=== PATIENT | male | born 1970 | race Caucasian/White ===

== ENCOUNTER 2019-07-16 12:47 | Emergency (ER) | payer SELFPAY | END 2019-07-16 14:44 | disposition left against medical advice (07) | LOC: ERS 12:47 | DX: I63.9 Cerebral infarction, unspecified (principal); R27.0 Ataxia, unspecified; R29.810 Facial weakness; G83.14 Monoplegia of lower limb affecting left nondominant side; I10 Essential (primary) hypertension; F17.210 Nicotine dependence, cigarettes, uncomplicated; Z79.899 Other long term (current) drug therapy | CPT/HCPCS: 99284 ==

== ENCOUNTER 2019-07-16 18:42 | Inpatient (IN) | payer SELFPAY ==
[2019-07-16 19:33] LABS: #Eosinphils 0.1 thou/uL (0.0-0.7); #Lymphocytes 1.7 thou/uL (1.20-3.40); #Monocytes 0.7 thou/uL (0.11-0.59); #Neutrophils 3.4 thou/uL (1.40-6.50); %Basophils 0.6 % (0.0-1.0); %Lymphocytes 29.3 % (21.0-51.0); %Monocytes 11.3 % (0.0-10.0); %Neutrophils 56.8 % (42.0-75.0); Hemoglobin 14.4 g/dL (14.0-18.0); Mean Corpuscular HGB CONC 34.8 g/dL (32.0-36.0); Mean Corpuscular Hemoglobin 36.7 pg (27.0-31.0); Mean Platelet Volume 7.1 fL (7.4-10.4); Platelet Count 95 thou/uL (130-400); RBC Distribution Width 12.4 % (11.5-14.5); Red Blood Cell (RBC) Count 3.93 mill/uL (4.70-6.10); White Blood Cell (WBC) Count 5.9 thou/uL (4.8-10.8)
[2019-07-16 19:45] LABS: ALT (SGPT) 41 U/L (8-55); AST (SGOT) 44 U/L (5-34); Alkaline Phosphatase 56 U/L (40-110); Anion Gap 17 mmol/L (10-20); BUN (Urea Nitrogen) Less than 4 mg/dL (8.9-20.6); Bilirubin, Total 0.6 mg/dL (0.2-1.2); Calc. Creatinine Clearance 0 mL/min (70-130); Calcium 8.9 mg/dL (7.8-10.44); Carbon Dioxide 21 mmol/L (22-29); Chloride 92 mmol/L (98-107); Estimated GFR-MDRD Greater than 90; Globulin 2.6 g/dL (2.4-3.5); Glucose 94 mg/dL (70-105); Potassium 3.7 mmol/L (3.5-5.1); Protein, Total 6.6 g/dL (6.0-8.3); Sodium 126 mmol/L (136-145)
[2019-07-16 19:52] LABS: MDiff Complete? YES; Macrocytosis SLIGHT = 6-15 cells (100X) (0-5/hpf); Platelet Morphology Comment Appears Decreased; Polychromasia SLIGHT = 2-3 cells (100X) (0-2/hpf)
--- NOTE | 2019-07-16 20:50 | CT ---
CT OF THE BRAIN WITHOUT IV CONTRAST: 07/16/19 INDICATION: History of left sided weakness and left sided deficits; evaluated with a stroke workup early this mor patricio at 11 a.m. but left AMA. COMPARISON: Prior CT of the brain dated 07/16/19 and 02/01/18. FINDINGS: There is generalized cerebral and cerebellar atrophy. There is mild chronic small vessel white matter ischemic change. No acute infarct, hemorrhage or hydrocephalus is present. There is partial fusion i nvolving the right mastoid air cells. The skull is intact. IMPRESSION: 1. No acute intracranial abnormality. 2. Stable generalized cerebral and cerebellar atrophy. POS: BH
[2019-07-16] MEDS ORDERED: Aspirin 325 mg Enteric Coated Tablet PO SCH (21:45)
--- NOTE | 2019-07-16 21:52 | PDOC.FPRHP ---
- History of Present Illness Chief Complaint: Weakness History of Present Illness: This is a 49 yo male with a pmh of HTN, tobacco, and alcohol abuse who presents to the ED with a cc of left sided weakness. He states this started yesterday evening at 1999 when he woke up from a nap. He states he stood up to use the restroom and fell. He states he was weak on his left side and had trouble getting back up. He thought maybe this would pass so we went to bed that evening. Earlier today, he was seen in an outside ER and was worked up for a stroke with a negative CT brain and CTA head and neck. He decided to leave AMA for a beer and cigarette. He states that the symptoms did not improve so he called the ambulance and came back to the ER. He states currently his weakness is better. He felt like his arm and hand were fatigued. ED Course: N/A - Allergies/Adverse Reactions Allergies Allergy/AdvReac Type Severity Reaction Status Date / Time No Known Allergies Allergy Verified 07/16/19 23:19 - Home Medications Medication Instructions Recorded Confirmed Type Metoprolol Tartrate [Lopressor] 100 mg PO BID 07/16/19 History - History PMHx: Tobacco and alcohol abuse, HTN PSHx: None FHx: Noncontributory Social: Smokes 2 packs a day x30 years, 18 beers per day - Review of Systems General: denies: fever/chills, weight/appetite/sleep changes, night sweats, fatigue Eyes: denies: eye pain, vision changes ENT: denies: nasal congestion, rhinorrhea Respiratory: denies: cough, congestion, shortness of breath, exercise intolerance Cardiovascular: denies: chest pain, palpitation, edema, paroxysmal nocturnal dyspnea, orthopnea Gastrointestinal: denies: nausea, vomiting, diarrhea, constipation, abdominal pain, GI bleeding Genitourinary: denies: incontinence, dysuria, polyuria Skin: denies: rashes, lesions, jaundice Musculoskeletal: denies: pain, tenderness, stiffness, swelling Neurological: reports: weakness. denies: numbness, syncope, seizure Psychological: reports: depression (Started drinking after his first divorce). denies: anxiety - Vital signs BP: 162/109 HR: 88 RR: 16 Tmax: 98.3 Pox: 98% on ra Wt: 63 kg - Physical Exam Constitutional: NAD, awake, alert and oriented, well developed HEENT: normocephalic and atraumatic, PERRLA, EOMI, grossly normal vision, grossly normal hearing, MMM Neck: trachea midline, no JVD Chest: no-tender to palpation, no lesions Heart: RRR, normal S1/S2, no murmurs/rubs/gallops, pulses present, no edema Lungs: CTAB, no respiratory distress, good air movement, no rales/rhonchi, no wheezing, no retractions Abdomen: soft, non-tender, bowel sounds present, no masses/distention Musculoskeletal: normal structure, normal tone Neurological: CN II-XII intact, normal sensation, other (Decreased strength in left upper and lower extremities, decreased proprioception on left) Skin: good turgor, capillary refill <2 seconds Heme/Lymphatic: no unusual bruising or bleeding Psychiatric: normal mood and affect, good judgment and insight FMR H&P: Results - Labs Result Diagrams: 07/17/19 04:45 07/17/19 04:45 Lab results: WBC 5.9 thou/uL (4.8-10.8) 07/16/19 19:18 Hgb 14.4 g/dL (14.0-18.0) 07/16/19 19:18 Hct 41.4 % (42.0-52.0) L 07/16/19 19:18 MCV 105.0 fL (78.0-98.0) H 07/16/19 19:18 Plt Count 95 thou/uL (130-400) L 07/16/19 19:18 Neutrophils % 56.8 % (42.0-75.0) 07/16/19 19:18 Sodium 126 mmol/L (136-145) L 07/16/19 19:18 Potassium 3.7 mmol/L (3.5-5.1) 07/16/19 19:18 Chloride 92 mmol/L (98-107) L 07/16/19 19:18 Carbon Dioxide 21 mmol/L (22-29) L 07/16/19 19:18 BUN Less than 4 mg/dL (8.9-20.6) L 07/16/19 19:18 Creatinine 0.67 mg/dL (0.7-1.3) L 07/16/19 19:18 Glucose 94 mg/dL (70-105) 07/16/19 19:18 Calcium 8.9 mg/dL (7.8-10.44) 07/16/19 19:18 Total Bilirubin 0.6 mg/dL (0.2-1.2) 07/16/19 19:18 AST 44 U/L (5-34) H 07/16/19 19:18 ALT 41 U/L (8-55) 07/16/19 19:18 Alkaline Phosphatase 56 U/L (40-110) 07/16/19 19:18 Serum Total Protein 6.6 g/dL (6.0-8.3) 07/16/19 19:18 Albumin 4.0 g/dL (3.5-5.0) 07/16/19 19:18 - EKG Interpretation EKG: NSR HR 84, QRS 74, QTc 441 - Radiology Interpretation CT scan - head Status: report reviewed by me (CTA head and neck no acute aneurism or bleed. Stenosis of left internal carotid CT brain: No acute intracranial lesions) FMR H&P: A/P - Problem List (1) CVA (cerebral vascular accident) Current Visit: Yes Status: Acute Code(s): I63.9 - CEREBRAL INFARCTION, UNSPECIFIED (2) Alcohol abuse Current Visit: Yes Status: Acute Code(s): F10.10 - ALCOHOL ABUSE, UNCOMPLICATED (3) Tobacco abuse Current Visit: Yes Status: Acute Code(s): Z72.0 - TOBACCO USE (4) Hyponatremia Current Visit: Yes Status: Acute Code(s): E87.1 - HYPO-OSMOLALITY AND HYPONATREMIA - Plan CVA/TIA rule out -Admit to stroke obs -Tele monitoring -CT brain/CTA head and neck grossly normal -EKG NSR -Pending echo and MRI -Starting statin and aspirin therapy -Permissive HTN Alcoholism -ASE protocol -Thiamine and folate supplementation -RUQ US Hyponatremia -Likely 2/2 above -Will replete solute Tobacco abuse -Nicotine patch -Encouraged cessation Code: Full Prophylaxis: Lovenox Family: None at bedside Fluids: SL Diet: HH Disposition: DC in 1-2 days PCP: None, cc FMR H&P: Upper Level - Plan Date/Time: 07/16/192135 I, [], have evaluated this patient and agree with findings/plan as outlined by undergraduate internship resident. Pertinent changes/additions are listed here. Addendum - Attending - Attending Attestation Date/Time: 07/17/19 2852 I personally evaluated the patient and discussed the management with Dr. Rand. I agree with the History, Examination, Assessment and Plan documented above with any addition or exceptions noted below. Patient with definite hemiparesis with some cerebellar findings on left. A/P: Likely stroke -MRI -TTE -risk stratify ETOH dependence -ASE protocol -thaimime/FA/MVI Thrombocytopenia/elevated LFTs -suspect cirrhosis -RUQ sono PT/OT DVT ppx
[2019-07-16] MEDS ORDERED: Acetaminophen 650 MG Suppository PR PRN (23:16)
[2019-07-16] MEDS ORDERED: Ondansetron ODT 4 MG TAB PO PRN (23:16)
[2019-07-16] MEDS ORDERED: Labetalol HCl 100 MG/20 ML VIAL SLOW IVP PRN (23:16)
[2019-07-16] MEDS ORDERED: hydrALAZINE 20 MG/ML VIAL SLOW IVP PRN (23:16)
[2019-07-16] MEDS ORDERED: Ondansetron PF 4 MG/2 ML Vial IVP PRN (23:16)
[2019-07-16] MEDS ORDERED: Acetaminophen 325 MG TAB PO PRN (23:16)
[2019-07-16] MEDS ORDERED: Diazepam 5 MG TAB PO PRN (23:19)
[2019-07-16] MEDS: Nicotine 21 MG PATCH TD SCH (23:43)
[2019-07-16] MEDS ORDERED: Diazepam 5 MG TAB PO SCH (23:59)
[2019-07-16] MEDS ORDERED: Thiamine HCl 200 MG/2 ML VIAL IM SCH (23:59)
[2019-07-17 01:18] VITALS: BMI 18.9
[2019-07-17] MEDS ORDERED: Thiamine 100 MG TAB PO SCH (03:15)
[2019-07-17] MEDS ORDERED: Folic Acid 1 MG TAB PO SCH (03:15)
[2019-07-17] MEDS ORDERED: Diazepam 5 MG TAB PO PRN (04:00)
[2019-07-17 05:25] LABS: ALT (SGPT) 38 U/L (8-55); AST (SGOT) 45 U/L (5-34); Albumin 3.7 g/dL (3.5-5.0); Alkaline Phosphatase 54 U/L (40-110); Anion Gap 16 mmol/L (10-20); BUN (Urea Nitrogen) 4 mg/dL (8.9-20.6); Bilirubin, Total 0.7 mg/dL (0.2-1.2); Calc. Creatinine Clearance 112 mL/min (70-130); Calcium 8.8 mg/dL (7.8-10.44); Carbon Dioxide 21 mmol/L (22-29); Cardiac Risk 2.8 (Less than 4.5); Chloride 98 mmol/L (98-107); Cholesterol 130 mg/dl (< 200 Desired); Estimated GFR-MDRD Greater than 90; Globulin 2.7 g/dL (2.4-3.5); Glucose 79 mg/dL (70-105); HDL Cholesterol 46 mg/dL (>60 Neg Risk); LDL Cholesterol, Calculated 71 mg/dL; Protein, Total 6.4 g/dL (6.0-8.3); Sodium 131 mmol/L (136-145); Triglycerides 64 mg/dL (Less than 150)
[2019-07-17 05:39] LABS: #Basophils 0.1 thou/uL (0.0-0.2); #Eosinphils 0.2 thou/uL (0.0-0.7); #Lymphocytes 1.9 thou/uL (1.20-3.40); #Monocytes 0.7 thou/uL (0.11-0.59); #Neutrophils 2.6 thou/uL (1.40-6.50); %Basophils 1.5 % (0.0-1.0); %Lymphocytes 34.7 % (21.0-51.0); %Monocytes 13.1 % (0.0-10.0); %Neutrophils 46.7 % (42.0-75.0); Hemoglobin 14.7 g/dL (14.0-18.0); Mean Corpuscular HGB CONC 34.2 g/dL (32.0-36.0); Mean Corpuscular Hemoglobin 36.6 pg (27.0-31.0); Mean Platelet Volume 7.2 fL (7.4-10.4); Platelet Count 113 thou/uL (130-400); RBC Distribution Width 12.4 % (11.5-14.5); Red Blood Cell (RBC) Count 4.01 mill/uL (4.70-6.10); White Blood Cell (WBC) Count 5.5 thou/uL (4.8-10.8)
--- NOTE | 2019-07-17 06:09 | PDOC.FM ---
- Subjective Subjective: Pt complains of continued mild weakness and discoordination of his RUE and RLE. No problems speaking and feels his speech is normal. Discussed different studies we will be getting today and pt is agreeable with plan. Expresses that he just wants to get better and leave. - Objective Vital Signs & Weight: Vital Signs (12 hours) Temp Pulse Resp BP BP Pulse Ox 07/17/19 04:22 97.5 F L 86 20 174/107 H 99 07/17/19 00:03 97.6 F 81 20 160/93 H 98 07/16/19 22:15 140/84 07/16/19 22:14 98 F 88 20 172/93 H 100 Weight Weight 58.241 kg I&O: 07/15/19 07/16/19 07/17/19 06:59 06:59 06:59 Intake Total 200 Output Total 100 Balance 100 Result Diagrams: 07/17/19 04:45 07/17/19 04:45 Phys Exam - Physical Examination Constitutional: NAD Thin HEENT: sclera anicteric Respiratory: clear to auscultation bilateral Cardiovascular: RRR Gastrointestinal: soft Scaphoid abdomen Musculoskeletal: no edema, pulses present Neurological: moves all 4 limbs Left hand telemarketing agent weak, finger to nose test with left arm is discoordinated Psychiatric: normal affect, A&O x 3 Skin: no rash, cap refill <2 seconds Dx/Plan (1) Alcohol abuse Code(s): F10.10 - ALCOHOL ABUSE, UNCOMPLICATED Status: Acute (2) CVA (cerebral vascular accident) Code(s): I63.9 - CEREBRAL INFARCTION, UNSPECIFIED Status: Acute (3) Hyponatremia Code(s): E87.1 - HYPO-OSMOLALITY AND HYPONATREMIA Status: Acute (4) Tobacco abuse Code(s): Z72.0 - TOBACCO USE Status: Acute (5) Macrocytosis Code(s): D75.89 - OTHER SPECIFIED DISEASES OF BLOOD AND BLOOD-FORMING ORGANS Status: Acute (6) Thrombocytopenia Code(s): D69.6 - THROMBOCYTOPENIA, UNSPECIFIED Status: Acute - Plan Plan: CVA/TIA rule out -Admit to stroke obs -Tele monitoring -CT brain/CTA head and neck grossly normal -Pending echo and MRI -Starting statin and aspirin therapy Alcoholism -macrocytosis without anemia and thrombocytopenia -ASE protocol -Thiamine and folate supplementation Hyponatremia -Likely 2/2 above -Improving with PO Tobacco abuse -Nicotine patch -Encouraged cessation Hypertension -24 hrs permissive htn allowed -Start 3.125 Coreg this morning Code: Full Prophylaxis: Lovenox Family: None at bedside Fluids: SL Diet: HH Disposition: DC in 1-2 days PCP: None, cc Addendum - Attending - Attending Attestation Date/Time: 07/17/19 5345 I personally evaluated the patient and discussed the management with Dr. Radford. I agree with the History, Examination, Assessment and Plan documented above with any addition or exceptions noted below. Patient has MRI evidence of CVA. Will continue usual post stroke care. Neuro consult and therapy evals.
[2019-07-17] MEDS ORDERED: Carvedilol 3.125 MG TAB PO SCH (08:00)
--- NOTE | 2019-07-17 09:00 | MRI ---
MRI OF THE BRAIN WITHOUT CONTRAST: COMPARISON: CT brain 07/16/2019. HISTORY: New onset of left arm and leg weakness. TECHNIQUE: Multiplanar, multisequence MRI images were obtained of the brain without and with IV contrast. FINDINGS: There is a small area of restricted diffusion in the right basal ganglia extending into the periventr icular white matter measuring 1.8 cm in greatest dimension. This represents a small new acute infarc tion. Mild high FLAIR signal is also seen in this location. There is no evidence of intracranial he morrhage or extraaxial fluid collection. No hydrocephalus is seen. The expected flow voids are present. The corpus callosum, pituitary, and craniocervical junction are unremarkable. The calvarium and overlying soft tissues are unremarkable. A small amount of fluid is seen in the bi lateral mastoid air cells. IMPRESSION: Small acute infarction in the right basal ganglia as above. POS: EAA
--- NOTE | 2019-07-17 09:29 | ULT ---
GALLBLADDER ULTRASOUND: INDICATION: Right upper quadrant pain. Possible cirrhosis. The patient states the patient is nonfasting. The p atient ate breakfast according to the technologist. FINDINGS: The gallbladder is not well distended and the gallbladder wall is mildly thickened. However, this is probably due to the nonfasting state. No evidence of gallstones. The common duct is normal in maryam ric measured at 3 mm. The liver is homogeneous and unremarkable in appearance. No liver mass. The pancreas is partially imaged and appears unremarkable as visualized. The right kidney is imaged and appears unremarkable. There is an echogenic focus seen in the mid rig ht kidney which could potentially represent a renal calculus which measures in the 5 mm range. IMPRESSION: 1. Unremarkable ultrasound liver. 2. Gallbladder is contracted with thickened wall. The patient is nonfasting and the gallbladder is not adequately evaluated. 3. Possible right renal calculus. POS: AGW
[2019-07-17] MEDS: Magnesium Oxide 400 MG TAB PO SCH (09:45)
[2019-07-17] MEDS: Multivitamin W/ Minerals 1 TAB PO SCH (09:45)
[2019-07-17] MEDS: Folic Acid 1 MG TAB PO SCH (09:46)
[2019-07-17] MEDS: Aspirin 81 mg Enteric Coated Tablet PO SCH (09:46)
[2019-07-17] MEDS: Thiamine 100 MG TAB PO SCH (09:46)
[2019-07-17 12:58] LABS: Medtox Reader # READER 1
[2019-07-17 12:59] LABS: Amphetamine Not Detected (NotDetected); Barbiturates Screen Not Detected (NotDetected); Benzodiazepine Screen Detected (NotDetected); Cocaine Metabolite Screen Not Detected (NotDetected); Medtox Control Line Valid? VALID (VALID); Methadone Not Detected (NotDetected); Methamphetamine Not Detected (NotDetected); Opiate Screen Not Detected (NotDetected); Oxycodone Screen Not Detected (NotDetected); Phencyclidine (PCP) Not Detected (NotDetected); THC/Cannabinoid Screen Not Detected (NotDetected); Tricyclic Screen Not Detected (NotDetected)
[2019-07-17] MEDS ORDERED: BEER 1 CAN PO SCH (13:45)
--- NOTE | 2019-07-17 13:56 | CON ---
DATE OF CONSULTATION: 07/17/2019 REASON FOR CONSULTATION: Left-sided weakness. HISTORY OF PRESENT ILLNESS: Mr. Daigle is a 49-year-old male with a history significant for hypertension, tobacco abuse, and alcohol abuse, presented to the emergency room with complaint of left-sided weakness. The weakness started yesterday around 2:20, when he woke up after taking a short nap. He tried to stand up to go to the restroom, but unable to do so and fell on the floor. He felt weak on the left side and had trouble getting back up. Yesterday, during the morning , he was also seen at the [facility] ER, where he was worked up with a stroke and a head CT was negative, and CTA of the head and neck was negative. He left AMA at that time for a beer and cigarette. Apparently, he felt weak earlier yesterday morning too, but his weakness resolved, so he decided to leave. The patient denies any nausea, vomiting, headache, vertigo, dizziness, loss of vision, loss of consciousness, or abnormal involuntary movement associated with this episode. He denies any history of stroke. - Allergies/Adverse Reactions Allergies Allergy/AdvReac Type Severity Reaction Status Date / Time No Known Allergies Allergy Verified 07/16/19 23:19 - Home Medications Medication Instructions Recorded Confirmed Type Metoprolol Tartrate [Lopressor] 100 mg PO BID 07/16/19 History - History PMHx: Tobacco and alcohol abuse, HTN PSHx: None FHx: Noncontributory Social: Smokes 2 packs a day x30 years, 18 beers per day - Review of Systems General: denies: fever/chills, weight/appetite/sleep changes, night sweats, fatigue Eyes: denies: eye pain, vision changes ENT: denies: nasal congestion, rhinorrhea Respiratory: denies: cough, congestion, shortness of breath, exercise intolerance Cardiovascular: denies: chest pain, palpitation, edema, paroxysmal nocturnal dyspnea, orthopnea Gastrointestinal: denies: nausea, vomiting, diarrhea, constipation, abdominal pain, GI bleeding Genitourinary: denies: incontinence, dysuria, polyuria Skin: denies: rashes, lesions, jaundice Musculoskeletal: denies: pain, tenderness, stiffness, swelling Neurological: reports: weakness. denies: numbness, syncope, seizure Psychological: reports: depression (Started drinking after his first divorce). denies: anxiety - Vital signs BP: 162/109 HR: 88 RR: 16 Tmax: 98.3 Pox: 98% on ra Wt: 63 kg Objective Vital Signs & Weight: Vital Signs (12 hours) Temp Pulse Resp BP BP Pulse Ox 07/17/19 04:22 97.5 F L 86 20 174/107 H 99 07/17/19 00:03 97.6 F 81 20 160/93 H 98 07/16/19 22:15 140/84 07/16/19 22:14 98 F 88 20 172/93 H 100 Weight Weight 58.241 kg I&O: 07/15/19 07/16/19 07/17/19 06:59 06:59 06:59 Intake Total 200 Output Total 100 Balance 100 - Physical Exam Constitutional: NAD, awake, alert and oriented, well developed HEENT: normocephalic and atraumatic, PERRLA, EOMI, grossly normal vision, grossly normal hearing, MMM Neck: trachea midline, no JVD Chest: no-tender to palpation, no lesions Heart: RRR, normal S1/S2, no murmurs/rubs/gallops, pulses present, no edema Lungs: CTAB, no respiratory distress, good air movement, no rales/rhonchi, no wheezing, no retractions Abdomen: soft, non-tender, bowel sounds present, no masses/distention Musculoskeletal: normal structure, normal tone Heme/Lymphatic: no unusual bruising or bleeding Psychiatric: normal mood and affect, good judgment and insight NEUROLOGICAL: Mental status, this patient is alert and oriented to person, place, and time. Speech is slurred. Cranial nerves, pupils equal and reactive to light. Left facial droop. Shrugs shoulders bilaterally. No gaze preference. Extraocular movements intact. Dysarthria. Tongue midline. Motor, muscle tone and bulk are normal. Strength 3/5 in the left upper and lower extremities, 5/5 in the right upper and lower extremities. Reflexes 2+ bilaterally. Cerebellar slow on the left secondary to weakness. Gait not tested because of the patient's safety reason. LABORATORY DATA: Labs were essentially unremarkable, except hyponatremia, sodium of 131, BUN was 4. I reviewed the head CT which was negative for acute intracranial pathology. CT of the head and neck, prior report from the emergency room did not reveal any significant stenosis of the left carotid artery. ASSESSMENT AND PLAN: Mr. Daigle is a 49-year-old with history significant for hyponatremia, tobacco and alcohol abuse, hypertension, presented with the left- sided weakness. MRI of the brain reviewed, which was consistent with small acute right basal ganglia infarct, most likely secondary to hypertension. Recommend echocardiogram to rule out cardioembolic source. Neuro checks every 4 hours. Continue aspirin and statin for secondary stroke prevention, permissive control of blood pressure at this time. Telemetry to rule out arrhythmias. Continue home medications. PT/OT/Speech. DVT Prophylaxis. Continue medical management per primary team. We will continue to follow. Thank you for the consult. Job ID: [id number] [facility]ENTERSh[facility]
[2019-07-17] MEDS ORDERED: Lisinopril 10 MG TAB PO SCH (14:15)
[2019-07-17] MEDS: Carvedilol 6.25 MG TAB PO SCH (17:12)
[2019-07-17] MEDS: BEER 1 CAN PO SCH (18:40)
--- NOTE | 2019-07-17 20:19 | CON ---
DATE OF CONSULTATION: 07/17/2019 REASON FOR CONSULTATION: Evaluate the patient with critical left carotid stenosis. HISTORY OF PRESENT ILLNESS: Mr. Daigle is a 49-year-old gentleman, who has been in and out of the ER over the last couple of days with left-sided weakness. He has left AMA, but eventually came via ambulance to [place]. He has no previous cardiac history. He has no previous surgical vascular history. He presented with left arm and leg weakness. He cannot walk. He barely could use his hand at the time of presentation to the ER. He has recovered down to where he stood today, but not walked. 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 As part of his workup, he has had a CT angiogram performed of his neck. This shows a clean right carotid system. On the left, he has heavily calcified carotid bulb and proximal internal carotid artery with critical stenosis. The patient drinks about a case of beer a day. He smokes at least a pack of cigarettes a day. I have been asked to see him to make recommendations on his left carotid system. PAST MEDICAL HISTORY: Hypertension. PAST SURGICAL HISTORY: None. MEDICATIONS AT HOME: Lopressor 100 mg b.i.d. ALLERGIES: NONE. SOCIAL HISTORY: As above. PHYSICAL EXAMINATION: GENERAL: This is a thin gentleman, resting comfortably in the bed on the stroke unit. VITAL SIGNS: Temperature is 98.4, pulse is 100, and blood pressure is 142/103. HEENT: Sclerae nonicteric. Pupils equal and round bilaterally. NECK: Supple. I cannot auscultate a bruit on either side. CHEST: Clear bilaterally. HEART: Rhythm is regular without murmur. ABDOMEN: Soft and nontender without mass. EXTREMITIES: No edema. VASCULAR: Palpable carotid, radial, and femoral pulses bilaterally. DIAGNOSTIC DATA: I have reviewed his CT scan. ASSESSMENT AND PLAN: This is a 49-year-old gentleman, who has suffered a stroke in his right hemisphere. He has no causative lesion in his right carotid system. He has an asymptomatic left critical carotid stenosis. Due to his history, I am reluctant to allow him to go home and come back to treat this lesion, despite the fact that it is asymptomatic. His anatomy is critical and I have discussed treatment of his left carotid lesion while he is an inpatient and he has agreed with plan for carotid endarterectomy tomorrow. We will also plan for long-term aspirin and Plavix after this. The patient has a longstanding heavy alcohol use history and is starting to experience withdrawal symptoms. We will start him on beer. We will also begin an PATITO inhibitor in addition to his Lopressor. Job ID: [id number]
[2019-07-17] MEDS: Atorvastatin Calcium 40 MG TAB PO SCH (21:42)
[2019-07-17] MEDS: Nicotine 21 MG PATCH TD SCH (23:56)
[2019-07-18] MEDS: Carvedilol 6.25 MG TAB PO SCH ×2 (05:00→16:57)
--- NOTE | 2019-07-18 06:08 | PDOC.FM ---
- Subjective Subjective: Denies any worsening or improvement in his left sided weakness and incoordination. Talked w/ Dr. Ortiz yesterday and agreed to proceed with CEA today. Discussed current plan of care and pt agrees to proceed. - Objective Vital Signs & Weight: Vital Signs (12 hours) Temp Pulse Resp BP BP Pulse Ox 07/18/19 05:00 182/83 H 07/18/19 04:00 97.9 F 83 18 182/83 H 95 07/17/19 23:58 98.6 F 94 18 137/86 98 07/17/19 21:45 96.8 F L 92 16 118/86 98 Weight Admit Weight 58.241 kg Weight 58.241 kg I&O: 07/16/19 07/17/19 07/18/19 06:59 06:59 06:59 Intake Total 200 700 Output Total 100 1650 Balance 100 -950 Result Diagrams: 07/17/19 04:45 07/17/19 04:45 Phys Exam - Physical Examination Constitutional: NAD HEENT: moist MMs, sclera anicteric Respiratory: clear to auscultation bilateral Cardiovascular: RRR Neurological: moves all 4 limbs Incoordination of left hand and lower leg, slightly weaker Lt fast food manager Psychiatric: normal affect, A&O x 3 Skin: cap refill <2 seconds Dx/Plan (1) Alcohol abuse Code(s): F10.10 - ALCOHOL ABUSE, UNCOMPLICATED Status: Acute (2) CVA (cerebral vascular accident) Code(s): I63.9 - CEREBRAL INFARCTION, UNSPECIFIED Status: Acute (3) Hyponatremia Code(s): E87.1 - HYPO-OSMOLALITY AND HYPONATREMIA Status: Acute (4) Tobacco abuse Code(s): Z72.0 - TOBACCO USE Status: Acute (5) Macrocytosis Code(s): D75.89 - OTHER SPECIFIED DISEASES OF BLOOD AND BLOOD-FORMING ORGANS Status: Acute (6) Thrombocytopenia Code(s): D69.6 - THROMBOCYTOPENIA, UNSPECIFIED Status: Acute - Plan Plan: CVA -CT brain/CTA head - proximal LICA 80% stenosis - Consulted [facility] - Dr. Ortiz saw pt and plans to perform CEA today. -MRI - right basal ganglia infarct with periventricular extension - Neurology - Dr. Rodriguez, appreciate recs -Echo -EF 60-65%, mild mitral and tricuspid regurg, 1/3 diastolic dysfunction -Started statin and aspirin therapy Alcoholism -macrocytosis without anemia and thrombocytopenia -ASE protocol -Thiamine and folate supplementation -Beer with meals Hyponatremia -Likely 2/2 above -Improving with PO Tobacco abuse -Nicotine patch -Encouraged cessation Hypertension -24 hrs permissive htn allowed -6.25 Coreg and 10 lisinopril Code: Full Prophylaxis: Lovenox Family: None at bedside Fluids: SL Diet: HH Disposition: DC in 2-3 days PCP: None, cc Addendum - Attending - Attending Attestation Date/Time: 07/18/19 1257 I personally evaluated the patient and discussed the management with Dr. Radford. I agree with the History, Examination, Assessment and Plan documented above with any addition or exceptions noted below. Patient doing well. Neuro deficits stable. Going for CEA today. Will need standard post-CVA care and therapy/ meds.
[2019-07-18] MEDS: BEER 1 CAN PO SCH ×3 (08:57→19:43)
[2019-07-18] MEDS ORDERED: Bupivacaine PF 0.5% 30 ML VIAL ONE (10:21)
[2019-07-18] MEDS ORDERED: Protamine Sulfate 50 MG/5 ML VIAL ONE (10:21)
[2019-07-18] MEDS ORDERED: EPINEPHrine 1 MG/ML AMP ONE (10:21)
[2019-07-18] MEDS ORDERED: Heparin 5,000 UNITS/ML VIAL ONE (10:21)
[2019-07-18] MEDS ORDERED: Fentanyl 100 MCG/2 ML VIAL ONE ×2 (10:42→13:52)
[2019-07-18] MEDS ORDERED: Phenylephrine 10 MG/ML VIAL ONE (10:42)
[2019-07-18] MEDS: Aspirin 81 mg Enteric Coated Tablet PO SCH (11:43)
[2019-07-18] MEDS: Lisinopril 10 MG TAB PO SCH (11:43)
[2019-07-18] MEDS: Folic Acid 1 MG TAB PO SCH (11:43)
[2019-07-18] MEDS: Thiamine 100 MG TAB PO SCH (11:44)
[2019-07-18] MEDS: Multivitamin W/ Minerals 1 TAB PO SCH (11:44)
[2019-07-18] MEDS: Magnesium Oxide 400 MG TAB PO SCH (11:44)
[2019-07-18] MEDS ORDERED: Ondansetron HCl/PF 4 MG/2 ML Vial IVP PRN (12:11)
[2019-07-18] MEDS ORDERED: Promethazine HCl 25 MG/ML VIAL IM PRN ×2 (12:11→13:10)
[2019-07-18] MEDS ORDERED: Promethazine HCl 25 MG/ML VIAL SLOW IVP PRN (12:11)
[2019-07-18] MEDS ORDERED: Rocuronium Bromide 10 MG/ML (10ML VIAL) ONE (12:37)
[2019-07-18] MEDS ORDERED: Dexamethasone 20 MG/5 ML VIAL ONE (12:37)
[2019-07-18] MEDS ORDERED: Lidocaine 1% PF 5 ML VIAL ONE (12:37)
[2019-07-18] MEDS ORDERED: Labetalol HCl 100 MG/20 ML VIAL ONE (12:37)
[2019-07-18] MEDS ORDERED: PHENYLEPHRINE-NS 100 MCG/ML 10 ML SYRINGE ONE (12:37)
[2019-07-18] MEDS ORDERED: Ondansetron PF 4 MG/2 ML Vial ONE (12:37)
[2019-07-18] MEDS ORDERED: PROPOFOL 200 MG/20 ML VIAL ONE (12:37)
[2019-07-18] MEDS ORDERED: Nitroglycerin 50 MG/250 ML BOT 250 ML IVPB PRN (13:10)
[2019-07-18] MEDS ORDERED: Fentanyl 100 MCG/2 ML VIAL SLOW IVP PRN ×2 (13:10)
[2019-07-18] MEDS ORDERED: Ondansetron PF 4 MG/2 ML Vial IVP PRN (13:10)
[2019-07-18] MEDS ORDERED: Phenylephrine 10 MG/NS 250 ML 250 ML IVPB PRN (13:10)
[2019-07-18] MEDS ORDERED: HYDROcodone/Acetaminophen 5/325 mg Tablet PO PRN (13:10)
[2019-07-18] MEDS ORDERED: Acetaminophen 325 MG TAB PO PRN (13:10)
[2019-07-18] MEDS: Sodium Chloride 0.9% 1,000 ML IV SCH (14:39)
[2019-07-18] MEDS: Nicotine 21 MG PATCH TD SCH (17:39)
[2019-07-18] MEDS: CEFAZOLIN 2 GM in Premix Bag 1 BAG IVPB SCH (18:44)
[2019-07-18] MEDS: Atorvastatin Calcium 40 MG TAB PO SCH (20:00)
[2019-07-18] MEDS: HYDROcodone/Acetaminophen 5/325 mg Tablet PO PRN (20:05)
[2019-07-18] MEDS: hydrALAZINE 20 MG/ML VIAL SLOW IVP PRN (20:11)
[2019-07-19] MEDS: Labetalol HCl 100 MG/20 ML VIAL SLOW IVP PRN ×3 (00:07→13:09)
[2019-07-19] MEDS: Sodium Chloride 0.9% 1,000 ML IV SCH ×3 (00:16→09:15)
[2019-07-19] MEDS: hydrALAZINE 20 MG/ML VIAL SLOW IVP PRN (04:08)
[2019-07-19] MEDS: CEFAZOLIN 2 GM in Premix Bag 1 BAG IVPB SCH ×2 (04:09→11:55)
--- NOTE | 2019-07-19 05:50 | PDOC.FM ---
- Subjective Subjective: CEA yesterday without complications. Notes some minimal improvement in his left hand dexterity and fine motor. Discussed plan of care and possible discharge plans going forward. Pt attempting to get some form of emergency medical insurance to assist with coverage for rehab center. - Objective Vital Signs & Weight: Vital Signs (12 hours) Temp Pulse Resp BP Pulse Ox 07/19/19 04:08 78 197/88 H 07/19/19 04:00 98.1 F 07/19/19 00:59 78 16 97 07/19/19 00:07 98 188/90 H 07/19/19 00:00 97.8 F 07/18/19 23:00 99 07/18/19 22:00 98.6 F 07/18/19 20:11 82 220/104 H 07/18/19 20:00 98.6 F 100 07/18/19 18:54 98.3 F 07/18/19 18:19 82 18 97 Weight Admit Weight 58.241 kg Weight 58.241 kg Most Recent Monitor Data Heart Rate from ECG 85 NIBP 138/88 NIBP BP-Mean 104 Respiration from ECG 18 SpO2 96 I&O: 07/17/19 07/18/19 07/19/19 06:59 06:59 06:59 Intake Total 028 895 4253 Output Total 100 1650 1575 Balance 100 -950 -340 Result Diagrams: 07/17/19 04:45 07/17/19 04:45 Phys Exam - Physical Examination Constitutional: NAD HEENT: moist MMs, sclera anicteric Left neck s/p CEA submandibular incision CDI Respiratory: clear to auscultation bilateral Cardiovascular: RRR Musculoskeletal: no edema Neurological: moves all 4 limbs dysmetria of LUE, able to do fingers to thumbs more fluently Psychiatric: normal affect, A&O x 3 Skin: cap refill <2 seconds Dx/Plan (1) Alcohol abuse Code(s): F10.10 - ALCOHOL ABUSE, UNCOMPLICATED Status: Acute (2) CVA (cerebral vascular accident) Code(s): I63.9 - CEREBRAL INFARCTION, UNSPECIFIED Status: Acute (3) Hyponatremia Code(s): E87.1 - HYPO-OSMOLALITY AND HYPONATREMIA Status: Acute (4) Tobacco abuse Code(s): Z72.0 - TOBACCO USE Status: Acute (5) Macrocytosis Code(s): D75.89 - OTHER SPECIFIED DISEASES OF BLOOD AND BLOOD-FORMING ORGANS Status: Acute (6) Thrombocytopenia Code(s): D69.6 - THROMBOCYTOPENIA, UNSPECIFIED Status: Acute - Plan Plan: CVA -CT brain/CTA head - proximal LICA 80% stenosis - CEA by Dr. Ortiz yesterday -MRI - right basal ganglia infarct with periventricular extension - Neurology - Dr. Rodriguez, appreciate recs -Residual left sided weakness and dysmetria - PT recommending Rehab post D/C - Pt uninsured, CM consulted for placement assistance -Echo -EF 60-65%, mild mitral and tricuspid regurg, 1/3 diastolic dysfunction -Started statin and aspirin therapy Alcoholism -macrocytosis without anemia and thrombocytopenia -ASE protocol -Thiamine and folate supplementation -Beer with meals Hyponatremia -Likely 2/2 above -Improving with PO Tobacco abuse -Nicotine patch -Encouraged cessation Hypertension -24 hrs permissive htn allowed -6.25 Coreg and 10 lisinopril -BMP to monitor for new ACEi -If uncontrolled, plan to increase coreg Code: Full Family: None at bedside Fluids: SL Diet: HH Disposition: DC in 2-4 days PCP: None, cc Addendum - Attending - Attending Attestation Date/Time: 07/19/19 1046 I personally evaluated the patient and discussed the management with Dr. Radford. I agree with the History, Examination, Assessment and Plan documented above with any addition or exceptions noted below. Patient doing well s/p CEA. Will continue BP mgmt and post CVA care with PT and needs CM for help with possible rehab placement.
[2019-07-19] MEDS: HYDROcodone/Acetaminophen 5/325 mg Tablet PO PRN (06:05)
[2019-07-19] MEDS: Magnesium Oxide 400 MG TAB PO SCH (09:13)
[2019-07-19] MEDS: Multivitamin W/ Minerals 1 TAB PO SCH (09:13)
[2019-07-19] MEDS: Lisinopril 10 MG TAB PO SCH (09:14)
[2019-07-19] MEDS: Aspirin Chewable 81 MG TAB PO SCH (09:14)
[2019-07-19] MEDS: Thiamine 100 MG TAB PO SCH (09:15)
[2019-07-19] MEDS: Folic Acid 1 MG TAB PO SCH (09:15)
[2019-07-19] MEDS: Carvedilol 6.25 MG TAB PO SCH (09:24)
[2019-07-19] MEDS: BEER 1 CAN PO SCH ×3 (09:36→17:30)
[2019-07-19] MEDS ORDERED: Carvedilol 6.25 MG TAB PO SCH (17:00)
[2019-07-19] MEDS: Nicotine 21 MG PATCH TD SCH (20:31)
[2019-07-19] MEDS: Atorvastatin Calcium 40 MG TAB PO SCH (20:31)
[2019-07-19] MEDS: Enoxaparin Sodium 30 MG/0.3 ML SYRINGE SC SCH (20:31)
[2019-07-20] MEDS: HYDROcodone/Acetaminophen 5/325 mg Tablet PO PRN ×3 (02:21→21:20)
[2019-07-20] MEDS: Labetalol HCl 100 MG/20 ML VIAL SLOW IVP PRN ×3 (05:08→11:11)
--- NOTE | 2019-07-20 05:54 | PDOC.FM ---
- Subjective Subjective: No events overnight. States no complaints this morning aside from post op left neck soreness. States he continues to try to work on fine motor skills of left hand on his own. Discussed importance of hypertension management once he leaves the hospital. Pt agrees with current plan of care. - Objective Vital Signs & Weight: Vital Signs (12 hours) Temp Pulse Resp BP BP BP Pulse Ox 07/20/19 05:08 81 185/100 H 07/20/19 04:49 98.4 F 81 16 185/100 H 94 L 07/20/19 02:24 98.5 F 83 16 177/102 H 99 07/19/19 20:20 96 07/19/19 20:12 97.6 F 96 16 179/105 H 96 07/19/19 20:00 97 143/93 H 07/19/19 19:02 87 16 97 Weight Admit Weight 58.241 kg Weight 58.241 kg Most Recent Monitor Data Heart Rate from ECG 101 NIBP 163/105 NIBP BP-Mean 124 Respiration from ECG 28 SpO2 95 I&O: 07/18/19 07/19/19 07/20/19 06:59 06:59 06:59 Intake Total 700 2577 1768.5 Output Total 1650 1575 2650 Balance -950 1002 -881.5 Result Diagrams: 07/20/19 06:25 07/20/19 06:25 Phys Exam - Physical Examination Constitutional: NAD HEENT: moist MMs, sclera anicteric Neck: full ROM left surgical incision CDI Respiratory: clear to auscultation bilateral Cardiovascular: RRR Musculoskeletal: no edema, pulses present Neurological: moves all 4 limbs Finger to nose and thumb to fingers unchanged since yesterday Psychiatric: normal affect, A&O x 3 Skin: no rash Dx/Plan (1) Alcohol abuse Code(s): F10.10 - ALCOHOL ABUSE, UNCOMPLICATED Status: Acute (2) CVA (cerebral vascular accident) Code(s): I63.9 - CEREBRAL INFARCTION, UNSPECIFIED Status: Acute (3) Hyponatremia Code(s): E87.1 - HYPO-OSMOLALITY AND HYPONATREMIA Status: Acute (4) Tobacco abuse Code(s): Z72.0 - TOBACCO USE Status: Acute (5) Macrocytosis Code(s): D75.89 - OTHER SPECIFIED DISEASES OF BLOOD AND BLOOD-FORMING ORGANS Status: Acute (6) Thrombocytopenia Code(s): D69.6 - THROMBOCYTOPENIA, UNSPECIFIED Status: Acute - Plan Plan: CVA -CT brain/CTA head - proximal LICA 80% stenosis - CEA by Dr. Ortiz 07/17 -MRI - right basal ganglia infarct with periventricular extension - Neurology - Dr. Rodriguez, appreciate recs -Residual left sided weakness and dysmetria - PT recommending Rehab post D/C - Pt uninsured, CM consulted for placement assistance -Echo -EF 60-65%, mild mitral and tricuspid regurg, 1/3 diastolic dysfunction -Started statin and aspirin therapy Alcoholism -macrocytosis without anemia and thrombocytopenia -ASE protocol -Thiamine and folate supplementation -Beer with meals Hyponatremia -Likely 2/2 above -Improving with PO Tobacco abuse -Nicotine patch -Encouraged cessation Hypertension -Continues to be difficult to control -Titrating up coreg and lisinopril -BMP to monitor for new ACEi Code: Full Family: None at bedside Fluids: SL Diet: HH Disposition: DC in 2-4 days Addendum - Attending - Attending Attestation Date/Time: 07/20/19 1036 I personally evaluated the patient and discussed the management with Dr. Radford. I agree with the History, Examination, Assessment and Plan documented above with any addition or exceptions noted below. Patient here with acute CVA and is now s/p CEA due to carotid stenosis. He is working with therapy and will need that on dc though that will be a challenge due to his social situation. Continue other post CVA care with ASA, statin, BP control (which we are escalating today). Monitor for EtOH withdrawal though he is currently on beer TID and doing well.
[2019-07-20 06:40] LABS: #Eosinphils 0.2 thou/uL (0.0-0.7); #Lymphocytes 1.5 thou/uL (1.20-3.40); #Monocytes 0.7 thou/uL (0.11-0.59); #Neutrophils 3.6 thou/uL (1.40-6.50); %Basophils 0.8 % (0.0-1.0); %Eosinophils 2.6 % (0.0-10.0); %Lymphocytes 24.3 % (21.0-51.0); %Monocytes 12.2 % (0.0-10.0); %Neutrophils 60.1 % (42.0-75.0); Hemoglobin 12.8 g/dL (14.0-18.0); Mean Corpuscular HGB CONC 33.1 g/dL (32.0-36.0); Mean Corpuscular Hemoglobin 35.8 pg (27.0-31.0); Mean Platelet Volume 7.2 fL (7.4-10.4); Platelet Count 111 thou/uL (130-400); RBC Distribution Width 12.4 % (11.5-14.5); Red Blood Cell (RBC) Count 3.57 mill/uL (4.70-6.10)
[2019-07-20 06:59] LABS: Anion Gap 13 mmol/L (10-20); BUN (Urea Nitrogen) 5 mg/dL (8.9-20.6); Calc. Creatinine Clearance 109 mL/min (70-130); Calcium 8.7 mg/dL (7.8-10.44); Carbon Dioxide 23 mmol/L (22-29); Chloride 101 mmol/L (98-107); Estimated GFR-MDRD Greater than 90; Glucose 93 mg/dL (70-105); Magnesium 1.8 mg/dL (1.6-2.6); Phosphorus 4.3 mg/dL (2.3-4.7); Sodium 133 mmol/L (136-145)
[2019-07-20] MEDS: Carvedilol 25 MG TAB PO SCH ×2 (08:15→18:00)
[2019-07-20] MEDS: Lisinopril 20 MG TAB PO SCH (08:16)
[2019-07-20] MEDS: Aspirin Chewable 81 MG TAB PO SCH (08:18)
[2019-07-20] MEDS: BEER 1 CAN PO SCH ×3 (08:51→18:10)
[2019-07-20] MEDS: Thiamine 100 MG TAB PO SCH (10:04)
[2019-07-20] MEDS: Magnesium Oxide 400 MG TAB PO SCH (11:13)
[2019-07-20] MEDS: Multivitamin W/ Minerals 1 TAB PO SCH (11:14)
[2019-07-20] MEDS: Folic Acid 1 MG TAB PO SCH (11:14)
[2019-07-20] MEDS ORDERED: NIFEdipine 10 MG CAP PO SCH (11:30)
[2019-07-20] MEDS: NIFEdipine 10 MG CAP PO SCH ×2 (15:41→21:22)
[2019-07-20] MEDS: Enoxaparin Sodium 30 MG/0.3 ML SYRINGE SC SCH (21:19)
[2019-07-20] MEDS: Atorvastatin Calcium 40 MG TAB PO SCH (21:21)
[2019-07-20] MEDS: Nicotine 21 MG PATCH TD SCH (22:47)
[2019-07-21] MEDS: HYDROcodone/Acetaminophen 5/325 mg Tablet PO PRN (03:17)
[2019-07-21] MEDS: hydrALAZINE 20 MG/ML VIAL SLOW IVP PRN (03:18)
[2019-07-21 04:52] LABS: Hemoglobin 12.9 g/dL (14.0-18.0); Mean Corpuscular HGB CONC 33.5 g/dL (32.0-36.0); Mean Corpuscular Hemoglobin 36.1 pg (27.0-31.0); Platelet Count 118 thou/uL (130-400); RBC Distribution Width 12.4 % (11.5-14.5); Red Blood Cell (RBC) Count 3.57 mill/uL (4.70-6.10); White Blood Cell (WBC) Count 4.7 thou/uL (4.8-10.8)
[2019-07-21 04:53] LABS: Lymphocytes 26 % (21-51); MDiff Complete? YES; Monocytes 14 % (0-10); Neutrophil 60 % (42-75); Platelet Morphology Comment Appears Decreased
--- NOTE | 2019-07-21 05:04 | PDOC.FM ---
- Subjective Subjective: Patient was resting comfortably in his bed at the time of evaluation, and denied any acute overnight events such as chest pain, shortness or breath or new -onset or worsening weakness. - Objective Vital Signs & Weight: Vital Signs (12 hours) Temp Pulse Resp BP BP Pulse Ox 07/21/19 04:06 148/105 H 07/21/19 03:18 87 192/109 H 07/21/19 03:06 98.1 F 86 20 182/103 H 99 07/20/19 23:31 97 07/20/19 23:05 97.5 F L 82 20 141/93 H 97 07/20/19 19:00 97.2 F L 101 H 20 149/92 H 98 07/20/19 18:54 90 16 97 Weight Admit Weight 58.241 kg Weight 58.241 kg Most Recent Monitor Data Heart Rate from ECG 101 NIBP 163/105 NIBP BP-Mean 124 Respiration from ECG 28 SpO2 95 I&O: 07/19/19 07/20/19 07/21/19 06:59 06:59 06:59 Intake Total 2577 1768.5 4440 Output Total 1575 2650 1700 Balance 1002 -881.5 2740 Result Diagrams: 07/21/19 04:28 07/21/19 04:28 Phys Exam - Physical Examination Constitutional: NAD HEENT: PERRLA, moist MMs, sclera anicteric, oral pharynx no lesions Neck: no nodes, supple, full ROM Respiratory: no wheezing, no rales, no rhonchi, clear to auscultation bilateral Cardiovascular: RRR, no significant murmur, no rub Gastrointestinal: soft, non-tender, no distention, positive bowel sounds Musculoskeletal: no edema, pulses present Left-sided weakness to public relations consultant and leg raise Lymphatic: no nodes Psychiatric: normal affect, A&O x 3 Skin: no rash, cap refill <2 seconds Dx/Plan (1) Alcohol abuse Code(s): F10.10 - ALCOHOL ABUSE, UNCOMPLICATED Status: Acute (2) CVA (cerebral vascular accident) Code(s): I63.9 - CEREBRAL INFARCTION, UNSPECIFIED Status: Acute (3) Macrocytosis Code(s): D75.89 - OTHER SPECIFIED DISEASES OF BLOOD AND BLOOD-FORMING ORGANS Status: Acute (4) Tobacco abuse Code(s): Z72.0 - TOBACCO USE Status: Acute - Plan Plan: Patient is a 49 y/o male admitted to the hospital for evaluation of acute left- sided weakness. 1. CVA -CT Brain/CTA Head/Neck: Proximal LICA 80% stenosis -MRI (Brain): Right Basal Ganglia Infarct with periventricular extension -CV Surgery: Consulted, s/p CEA by Dr. Ortiz on 07/17 -Neruology: Consulted, recs appreciated -PT: Recommended Rehab after DC -Case Management: Consulted assisting w/ placement as patient is uninsured -TTE: EF 60-65%, mild mitral and tricuspid regurgitation, 1/3 diastolic dysfunction -Started on Statin and ASA -Residual left-sided weakness and dysmetria - will continue to monitor 2. EtOH Abuse -Macrocytosis w/o anemia and thrombocytopenia -Thiamine and Folate supplementation -ASE Protocol -EtOH x2 w/ meals, per Dr. Ortiz 3. Hyponatremia -Likely 2/2 to #3 -Improving with PO intake 4. Tobacco Abuse -Nicotine Patch -Will continue to encouraged Tobacco Abuse cessation 5. Hypertension -Difficult to control since admission -Currently on Carvedilol, Lisinopril and Nifedipine - will increase Nifedipine to 60 mg PO daily w/ ER formulation -Serial BMPs to monitor Cr following addition of new ACEi PCP: None Code: Full Diet: HH w/ EtOH x2 at Meals VTE PPE: Lovenox Fluids: SL Dispo: Currently stable and admitted to Stroke Floor. Continue to monitor BP and titrate antihypertensive regimen as needed. Coordinate w/ Case Management in order to assist w/ placement - Rehab vs. DC to home w/ Home Health. Expected LOS <48H. Addendum - Attending - Attending Attestation Date/Time: 07/21/19 9403 I personally evaluated the patient and discussed the management with Dr. Kruse I agree with the History, Examination, Assessment and Plan documented above with any addition or exceptions noted below. Patient is a 49 y/o male being treated for hypertensive urgency and CVA. POD #3 after CEA. Titrating up on BP medications. Trying to select medication he will be able to afford outpatient. Awaiting case management assistance for placement. Rehab rec'd by PT/OT but patient is uninsured. RA Samaniego
[2019-07-21 05:18] LABS: Anion Gap 11 mmol/L (10-20); BUN (Urea Nitrogen) 8 mg/dL (8.9-20.6); Calc. Creatinine Clearance 110 mL/min (70-130); Calcium 8.7 mg/dL (7.8-10.44); Carbon Dioxide 25 mmol/L (22-29); Chloride 101 mmol/L (98-107); Estimated GFR-MDRD Greater than 90; Glucose 92 mg/dL (70-105); Magnesium 1.9 mg/dL (1.6-2.6); Sodium 133 mmol/L (136-145)
[2019-07-21] MEDS: BEER 1 CAN PO SCH ×3 (08:46→18:18)
[2019-07-21] MEDS: Folic Acid 1 MG TAB PO SCH (08:47)
[2019-07-21] MEDS: Multivitamin W/ Minerals 1 TAB PO SCH (08:48)
[2019-07-21] MEDS: Magnesium Oxide 400 MG TAB PO SCH (08:48)
[2019-07-21] MEDS: Thiamine 100 MG TAB PO SCH (08:48)
[2019-07-21] MEDS: Aspirin Chewable 81 MG TAB PO SCH (08:48)
[2019-07-21] MEDS: Lisinopril 20 MG TAB PO SCH (08:49)
[2019-07-21] MEDS: Carvedilol 25 MG TAB PO SCH ×2 (08:50→16:18)
[2019-07-21] MEDS ORDERED: NIFEdipine XL 60 MG TAB PO SCH (09:00)
--- NOTE | 2019-07-21 14:23 | PDOC.HOSPP ---
- Subjective Encounter Date: 07/21/19 Subjective: NEUROLOGY PROGRESS NOTE No acute events overnight - Objective Vital Signs & Weight: Vital Signs (12 hours) Temp Pulse Resp BP BP BP Pulse Ox 07/21/19 13:47 100 20 100 07/21/19 12:00 97.7 F 86 16 173/111 H 98 07/21/19 10:05 97 136/86 07/21/19 08:49 192/107 H 07/21/19 07:45 97.2 F L 100 18 181/112 H 100 07/21/19 07:42 113 H 18 97 07/21/19 04:06 148/105 H 07/21/19 03:18 87 192/109 H 07/21/19 03:06 98.1 F 86 20 182/103 H 99 Weight Admit Weight 128 lb 6.4 oz Weight 128 lb 6.4 oz Most Recent Monitor Data Heart Rate from ECG 101 NIBP 163/105 NIBP BP-Mean 124 Respiration from ECG 28 SpO2 95 I&O: 07/20/19 07/21/19 07/22/19 06:59 06:59 06:59 Intake Total 1768.5 4440 Output Total 2650 1700 Balance -881.5 2740 Result Diagrams: 07/21/19 04:28 07/21/19 04:28 Radiology Reviewed by me: Yes EKG Reviewed by me: Yes Hospitalist ROS - Review of Systems Constitutional: denies: fever, chills, sweats, weakness, malaise, other Eyes: denies: pain, vision change, conjunctivae inflammation, eyelid inflammation, redness, other ENT: denies: ear pain, ear discharge, nose pain, nose discharge, nose congestion , mouth pain, mouth swelling, throat pain, throat swelling, other Respiratory: denies: cough, dry, shortness of breath, hemoptysis, SOB with excertion, pleuritic pain, sputum, wheezing, other Cardiovascular: denies: chest pain, palpitations, orthopnea, paroxysmal noc. dyspnea, edema, light headedness, other Gastrointestinal: denies: nausea, vomiting, abdominal pain, diarrhea, constipation, melena, hematochezia, other Musculoskeletal: reports: neck pain. denies: shoulder pain, arm pain, back pain , hand pain, leg pain, foot pain, other Skin: denies: rash, lesions, tiago, bruising, other Neurological: reports: weakness. denies: numbness, incoordination, change in speech, confusion, seizures, other - Medication Medications: Active Medications Generic Name Dose Route Start Last Admin Trade Name Freq PRN Reason Stop Dose Admin Hydrocodone Bitart/Acetaminophen 1 tab 07/18/19 13:10 07/21/19 03:17 Robertson 5/325 PO 1 tab Q4H PRN Administration Mild Pain (1-3) Albuterol/Ipratropium 3 ml 07/18/19 13:00 07/21/19 13:47 Duoneb NEB 3 ml [id number] NATE Administration Aspirin 81 mg 07/19/19 09:00 07/21/19 08:48 Aspirin Chewable PO 81 mg QAM NATE Administration Atorvastatin Calcium 40 mg 07/19/19 21:00 07/20/19 21:21 Lipitor PO 40 mg HS NATE Administration Beer 2 each 07/17/19 17:00 07/21/19 12:20 Beer PO 2 each TID-WM NATE Administration Carvedilol 25 mg 07/20/19 08:00 07/21/19 08:50 Coreg PO 25 mg BID-WM NATE Administration Enoxaparin Sodium 30 mg 07/19/19 21:00 07/20/19 21:19 Lovenox SC 30 mg 2100 NATE Administration Fentanyl 25 mcg 07/18/19 13:10 07/18/19 17:26 Sublimaze SLOW IVP 25 mcg Q4H PRN Administration Moderate Pain (4-6) Folic Acid 1 mg 07/17/19 09:00 07/21/19 08:47 Folvite PO 1 mg DAILY NATE Administration Hydralazine HCl 10 mg 07/17/19 12:56 07/21/19 03:18 Apresoline SLOW IVP 10 mg Q4H PRN Administration SBP Greater Than 180 Iron/Minerals/Multivitamins 1 tab 07/17/19 09:00 07/21/19 08:48 Theragran M PO 1 tab DAILY NATE Administration Labetalol HCl 20 mg 07/17/19 12:56 07/20/19 11:11 Normodyne SLOW IVP 20 mg Q1H PRN Administration SBP Greater Than 180 Lisinopril 20 mg 07/20/19 09:00 07/21/19 08:49 Zestril PO 20 mg DAILY NATE Administration Magnesium Oxide 400 mg 07/17/19 09:00 07/21/19 08:48 Magnesium Oxide PO 400 mg DAILY NATE Administration Nicotine 21 mg 07/16/19 23:30 07/20/19 22:47 Nicoderm Patch TD 21 mg Q24HR NATE Administration Sodium Chloride 10 ml 07/21/19 09:00 07/21/19 10:06 Flush - Normal Saline IVF 10 ml Q12HR NATE Administration Thiamine HCl 100 mg 07/17/19 09:00 07/21/19 08:48 Thiamine PO 100 mg DAILY NATE Administration - Exam General Appearance: awake alert Eye: PERRL, anicteric sclera ENT: normocephalic atraumatic, no oropharyngeal lesions Neck: supple Heart: RRR Respiratory: CTAB Gastrointestinal: soft Extremities: no cyanosis, no clubbing, no edema Skin: normal turgor, no lesions, no rashes Neurological: cranial nerve grossly intact, no new deficit, speech deficit Neurological - other findings: left hemiparesis Musculoskeletal: normal tone, no muscle wasting Psychiatric: normal affect, normal behavior, A&O x 3, oriented to person, oriented to place, oriented to time Hosp A/P (1) Alcohol abuse Code(s): F10.10 - ALCOHOL ABUSE, UNCOMPLICATED Status: Acute (2) CVA (cerebral vascular accident) Code(s): I63.9 - CEREBRAL INFARCTION, UNSPECIFIED Status: Acute (3) Macrocytosis Code(s): D75.89 - OTHER SPECIFIED DISEASES OF BLOOD AND BLOOD-FORMING ORGANS Status: Acute (4) Thrombocytopenia Code(s): D69.6 - THROMBOCYTOPENIA, UNSPECIFIED Status: Acute (5) Tobacco abuse Code(s): Z72.0 - TOBACCO USE Status: Acute - Plan PT/OT, speech therapy 49 year old with left sided weakness. Imaging positive for acute infarction . CT Brain/CTA Head/Neck reviewed which showed proximal LICA 80% stenosis MRI brain reviewed which showed right Basal Ganglia Infarct with periventricular extension TTE showed EF 60-65%, mild mitral and tricuspid regurgitation, 1/3 diastolic dysfunction. No thrombus or PFO s/p CEA by Dr. Ortiz on 07/17 Continue Statin and ASA for secondary stroke prevention. Strict control of BP and BG. Telemetry. DVT prophylaxis Neurochecks every 4 hours. Continue home medications. Continue medical management per primary team. PT/OT/Speech.
[2019-07-21] MEDS: Atorvastatin Calcium 40 MG TAB PO SCH (20:05)
[2019-07-21] MEDS: Famotidine 20 MG TAB PO SCH (20:05)
[2019-07-21] MEDS: Enoxaparin Sodium 30 MG/0.3 ML SYRINGE SC SCH (20:05)
[2019-07-22] MEDS: Nicotine 21 MG PATCH TD SCH ×2 (00:24→22:30)
[2019-07-22] MEDS: HYDROcodone/Acetaminophen 5/325 mg Tablet PO PRN ×2 (00:24→22:27)
--- NOTE | 2019-07-22 05:19 | PDOC.FM ---
- Subjective Subjective: Patient was resting comfortably in his bed at the time of evaluation. He denied any acute overnight events such as chest pain or SOB. Patient is optimistic about his PT/OT sessions, and feels that he is ambulating with greater efficiency now than upon presentation. - Objective Vital Signs & Weight: Vital Signs (12 hours) Temp Pulse Resp BP BP Pulse Ox 07/22/19 03:40 168/100 H 07/22/19 03:30 97.8 F 82 16 168/100 H 98 07/22/19 00:25 175/109 H 07/21/19 23:41 88 13 175/109 H 100 07/21/19 23:36 96 07/21/19 20:05 143/88 H 96 07/21/19 19:57 97.9 F 98 18 143/88 H 96 07/21/19 19:06 98 18 96 Weight Admit Weight 58.241 kg Weight 58.241 kg Most Recent Monitor Data Heart Rate from ECG 101 NIBP 163/105 NIBP BP-Mean 124 Respiration from ECG 28 SpO2 95 I&O: 07/20/19 07/21/19 07/22/19 06:59 06:59 06:59 Intake Total 1768.5 4440 1440 Output Total 2650 1700 1200 Balance -881.5 2740 240 Result Diagrams: 07/21/19 04:28 07/21/19 04:28 Phys Exam - Physical Examination Constitutional: NAD HEENT: PERRLA, moist MMs, sclera anicteric, oral pharynx no lesions Neck: no nodes, supple, full ROM Respiratory: no wheezing, no rales, no rhonchi, clear to auscultation bilateral Cardiovascular: RRR, no significant murmur, no rub Gastrointestinal: soft, non-tender, no distention, positive bowel sounds Musculoskeletal: no edema, pulses present Limited strength to flexion of LLE Neurological: moves all 4 limbs See MSK Lymphatic: no nodes Psychiatric: normal affect, A&O x 3 Skin: no rash Dx/Plan (1) Alcohol abuse Code(s): F10.10 - ALCOHOL ABUSE, UNCOMPLICATED Status: Acute (2) CVA (cerebral vascular accident) Code(s): I63.9 - CEREBRAL INFARCTION, UNSPECIFIED Status: Acute (3) Macrocytosis Code(s): D75.89 - OTHER SPECIFIED DISEASES OF BLOOD AND BLOOD-FORMING ORGANS Status: Acute (4) Tobacco abuse Code(s): Z72.0 - TOBACCO USE Status: Acute - Plan Plan: Patient is a 49 y/o male admitted to the hospital for evaluation of acute left- sided weakness. 1. CVA -CT Brain/CTA Head/Neck: Proximal LICA 80% stenosis -MRI (Brain): Right Basal Ganglia Infarct with periventricular extension -CV Surgery: Consulted, s/p CEA by Dr. Ortiz on 07/17 -Neruology: Consulted, recs appreciated -PT: Consulted, recommended In-Patient Rehab after DC -Case Management: Consulted, assisting w/ placement as patient is uninsured -TTE: EF 60-65%, mild mitral and tricuspid regurgitation, 1/3 diastolic dysfunction -Started on Statin and ASA -Residual left-sided weakness and dysmetria - improving 2. EtOH Abuse -Macrocytosis w/o anemia and thrombocytopenia -Thiamine and Folate supplementation -ASE Protocol -EtOH x2 w/ meals, per Dr. Ortiz 3. Hyponatremia -Likely 2/2 to #3 -Improving with PO intake 4. Tobacco Abuse -Nicotine Patch -Will continue to encouraged Tobacco Abuse cessation 5. Hypertension -Difficult to control since admission -Currently on Carvedilol 50 mg PO BID, Lisinopril 20 mg PO daily and Amlodipine 10 mg PO daily - will increase to Lisinopril 30 mg PO daily -Serial BMPs to monitor Cr following addition of new ACEi -Renal US: Pending -Renin/Aldosterone: Pending PCP: None Code: Full Diet: HH w/ EtOH x2 at Meals VTE PPE: Lovenox Fluids: SL Dispo: Currently stable and admitted to Stroke Floor. Continue to monitor BP and titrate antihypertensive regimen as needed, await US results as per above. Coordinate w/ Case Management in order to assist w/ placement - Rehab vs. DC to home w/ Outpatient Therapy. Expected LOS <48H. Addendum - Attending - Attending Attestation Date/Time: 07/22/19 0180 I personally evaluated the patient and discussed the management with Dr. Kruse I agree with the History, Examination, Assessment and Plan documented above with any addition or exceptions noted below. Patient is a 49 y/o male being treated for hypertensive urgency and CVA. POD #4 after CEA. TDifficult to control BP despite three agents. Renal US unremarkable today. Renin:Aldosterone pending. Will stop alcohol and transition to librium as this could be contributing to HTN, continue to watch ASE scores closely. Will consult Nephrology for insight on BP control. RA Samaniego
[2019-07-22] MEDS: Polyethylene Glycol 3350 17 GM Packet PO PRN (08:17)
[2019-07-22] MEDS: Aspirin Chewable 81 MG TAB PO SCH (08:17)
[2019-07-22] MEDS: Magnesium Oxide 400 MG TAB PO SCH (08:17)
[2019-07-22] MEDS: Carvedilol 25 MG TAB PO SCH ×2 (08:17→16:21)
[2019-07-22] MEDS: Folic Acid 1 MG TAB PO SCH (08:17)
[2019-07-22] MEDS: Thiamine 100 MG TAB PO SCH (08:17)
[2019-07-22] MEDS: Multivitamin W/ Minerals 1 TAB PO SCH (08:17)
[2019-07-22] MEDS: Amlodipine 10 MG TAB PO SCH (08:17)
[2019-07-22] MEDS: Lisinopril 20 MG TAB PO SCH (08:17)
[2019-07-22] MEDS: Famotidine 20 MG TAB PO SCH ×2 (08:17→20:18)
--- NOTE | 2019-07-22 09:01 | ULT ---
BILATERAL RENAL ULTRASOUND WITH LENNON SCALE, COLOR FLOW, AND SPECTRAL DOPPLER IMAGING: History FINDINGS: The right kidney measures 11.6 cm in length and the left kidney measures 11.1 cm in length. No hydro nephrosis is seen. There is a 1.6 cm left renal cyst. The urinary bladder has a volume of 382 cc an d is unremarkable. The peak systolic velocity in the right renal artery measures 140 cm/s and the left renal artery sandoval ures 90 cm/s. The renal artery to aortic ratios measured 2.71 on the right and 1.74 on the left with resistive indices of 0.64 on the right and 0.54 on the left. IMPRESSION: 1. Left renal cyst. 2. No evidence of hemodynamically significant renal artery stenosis. POS: [facility]
[2019-07-22] MEDS: BEER 1 CAN PO SCH ×2 (09:17→12:11)
[2019-07-22] MEDS ORDERED: Lisinopril 20 MG TAB PO SCH (10:15)
--- NOTE | 2019-07-22 13:11 | PDOC.HOSPP ---
- Subjective Encounter Date: 07/22/19 Subjective: NEUROLOGY PROGRESS NOTE No acute events overnight. - Objective Vital Signs & Weight: Vital Signs (12 hours) Temp Pulse Resp BP BP BP Pulse Ox 07/22/19 12:10 164/92 H 07/22/19 12:09 164/92 H 07/22/19 12:00 97.5 F L 84 18 164/92 H 204/110 H 96 07/22/19 09:00 184/102 H 07/22/19 08:13 192/110 H 07/22/19 08:00 192/110 H 98 07/22/19 07:35 98.1 F 101 H 18 222/130 H 98 07/22/19 07:07 84 18 100 07/22/19 03:40 168/100 H 07/22/19 03:30 97.8 F 82 16 168/100 H 98 Weight Admit Weight 128 lb 6.4 oz Weight 128 lb 4.944 oz Most Recent Monitor Data Heart Rate from ECG 101 NIBP 163/105 NIBP BP-Mean 124 Respiration from ECG 28 SpO2 95 I&O: 07/21/19 07/22/19 07/23/19 06:59 06:59 06:59 Intake Total 4440 2240 Output Total 1700 2725 Balance 2740 -485 Result Diagrams: 07/21/19 04:28 07/21/19 04:28 Radiology Reviewed by me: Yes EKG Reviewed by me: Yes Hospitalist ROS - Review of Systems Constitutional: denies: fever, chills, sweats, weakness, malaise, other Eyes: denies: pain, vision change, conjunctivae inflammation, eyelid inflammation, redness, other ENT: denies: ear pain, ear discharge, nose pain, nose discharge, nose congestion , mouth pain, mouth swelling, throat pain, throat swelling, other Respiratory: denies: cough, dry, shortness of breath, hemoptysis, SOB with excertion, pleuritic pain, sputum, wheezing, other Cardiovascular: denies: chest pain, palpitations, orthopnea, paroxysmal noc. dyspnea, edema, light headedness, other Gastrointestinal: denies: nausea, vomiting, abdominal pain, diarrhea, constipation, melena, hematochezia, other Genitourinary: denies: dysuria, frequency, incontinence, hematuria, retention, other Musculoskeletal: reports: neck pain (due to surgery). denies: shoulder pain, arm pain, back pain, hand pain, leg pain, foot pain, other Neurological: reports: weakness, incoordination. denies: numbness, change in speech, confusion, seizures, other - Medication Medications: Active Medications Generic Name Dose Route Start Last Admin Trade Name Freq PRN Reason Stop Dose Admin Hydrocodone Bitart/Acetaminophen 1 tab 07/18/19 13:10 07/22/19 00:24 Smock 5/325 PO 1 tab Q4H PRN Administration Mild Pain (1-3) Albuterol/Ipratropium 3 ml 07/18/19 13:00 07/22/19 07:07 Duoneb NEB 3 ml [id number] NATE Administration Amlodipine Besylate 10 mg 07/22/19 09:00 07/22/19 08:17 Norvasc PO 10 mg DAILY NATE Administration Aspirin 81 mg 07/19/19 09:00 07/22/19 08:17 Aspirin Chewable PO 81 mg QAM NATE Administration Atorvastatin Calcium 40 mg 07/19/19 21:00 07/21/19 20:05 Lipitor PO 40 mg HS NATE Administration Beer 2 each 07/17/19 17:00 07/22/19 12:11 Beer PO 2 each TID-WM NATE Administration Carvedilol 25 mg 07/20/19 08:00 07/22/19 08:17 Coreg PO 25 mg BID-WM NATE Administration Enoxaparin Sodium 30 mg 07/19/19 21:00 07/21/19 20:05 Lovenox SC 30 mg 2100 NATE Administration Famotidine 20 mg 07/21/19 21:00 07/22/19 08:17 Pepcid PO 20 mg BID NATE Administration Fentanyl 25 mcg 07/18/19 13:10 07/18/19 17:26 Sublimaze SLOW IVP 25 mcg Q4H PRN Administration Moderate Pain (4-6) Folic Acid 1 mg 07/17/19 09:00 07/22/19 08:17 Folvite PO 1 mg DAILY NATE Administration Hydralazine HCl 10 mg 07/17/19 12:56 07/21/19 03:18 Apresoline SLOW IVP 10 mg Q4H PRN Administration SBP Greater Than 180 Iron/Minerals/Multivitamins 1 tab 07/17/19 09:00 07/22/19 08:17 Theragran M PO 1 tab DAILY NATE Administration Labetalol HCl 20 mg 07/17/19 12:56 07/20/19 11:11 Normodyne SLOW IVP 20 mg Q1H PRN Administration SBP Greater Than 180 Magnesium Oxide 400 mg 07/17/19 09:00 07/22/19 08:17 Magnesium Oxide PO 400 mg DAILY NATE Administration Nicotine 21 mg 07/16/19 23:30 07/22/19 00:24 Nicoderm Patch TD 21 mg Q24HR NATE Administration Polyethylene Glycol 17 gm 07/20/19 10:35 07/22/19 08:17 Miralax PO 17 gm DAILYPRN PRN Administration Constipation Sodium Chloride 10 ml 07/21/19 09:00 07/22/19 08:18 Flush - Normal Saline IVF 10 ml Q12HR NATE Administration Thiamine HCl 100 mg 07/17/19 09:00 07/22/19 08:17 Thiamine PO 100 mg DAILY NATE Administration - Exam General Appearance: awake alert Eye: PERRL, anicteric sclera ENT: normocephalic atraumatic, moist mucosa Neck: supple, symmetric, no JVD Heart: RRR Respiratory: CTAB Gastrointestinal: soft Extremities: no cyanosis, no clubbing, no edema Skin: normal turgor, no lesions, no rashes Neurological: no new deficit, facial droop, hemiplegia Neurological - other findings: left hemiparesis Musculoskeletal: normal tone, no muscle wasting Psychiatric: normal affect, normal behavior, A&O x 3, oriented to person, oriented to place, oriented to time Hosp A/P (1) Alcohol abuse Code(s): F10.10 - ALCOHOL ABUSE, UNCOMPLICATED Status: Acute (2) CVA (cerebral vascular accident) Code(s): I63.9 - CEREBRAL INFARCTION, UNSPECIFIED Status: Acute (3) Macrocytosis Code(s): D75.89 - OTHER SPECIFIED DISEASES OF BLOOD AND BLOOD-FORMING ORGANS Status: Acute (4) Thrombocytopenia Code(s): D69.6 - THROMBOCYTOPENIA, UNSPECIFIED Status: Acute (5) Tobacco abuse Code(s): Z72.0 - TOBACCO USE Status: Acute - Plan plan discussed w/ family, PT/OT 49 year old with left sided weakness. Imaging positive for acute infarction in the right basal ganglia . CT Brain/CTA Head/Neck reviewed which showed proximal LICA 80% stenosis MRI brain reviewed which showed right Basal Ganglia Infarct with periventricular extension TTE showed EF 60-65%, mild mitral and tricuspid regurgitation, 1/3 diastolic dysfunction. No thrombus or PFO s/p CEA by Dr. Ortiz on 07/17. Recovering well. Continue Statin and ASA for secondary stroke prevention. Strict control of BP and BG. Telemetry. DVT prophylaxis Neurochecks every 4 hours. Continue home medications. PT/OT/Speech. Continue medical management per primary team. Plan discussed with patient and family member.
[2019-07-22] MEDS ORDERED: cloNIDine 0.1 MG TAB PO SCH (13:30)
[2019-07-22] MEDS ORDERED: cloNIDine 0.2 MG TAB PO SCH ×2 (14:00→21:00)
--- NOTE | 2019-07-22 15:01 | CON ---
DATE OF CONSULTATION: REASON FOR CONSULTATION: Uncontrolled hypertension. HISTORY OF PRESENTING ILLNESS: This is a very pleasant 49-year-old gentleman, who presented with left-sided weakness, was noted to have a sodium of 126, which corrected to 133 over a period of few days, and was noted to have uncontrolled hypertension. The patient is an alcoholic and is drinking beer in the hospital. Reviewing his blood pressure logs, his systolic blood pressures have ranged anywhere from 159 to more than 220 and the diastolic in the 100s. The patient denies headache, numbness, or tingling right now, but has had a basal ganglia infarct. PAST MEDICAL HISTORY: Significant for tobacco use, alcohol use, hypertension. SOCIAL HISTORY: Smoking positive. ALLERGIES: REVIEWED. HOME MEDICATIONS: List reviewed. HOSPITAL MEDICATIONS: Reviewed. REVIEW OF SYSTEMS: Fifteen-point review of system was performed, negative except for positives noted above. HEENT: Eyes intact, no diplopia. Ears: No hearing loss or earache. Nose: No discharge or bleeding. Chest: No cough or phlegm. Abdomen: No nausea or vomiting. Genitourinary: No hematuria. No Haynes catheter. Musculoskeletal: No low back pain. No joint swelling or pain. Neurological: No syncope. No seizures. Skin: No complaints of rash or itching. Psychiatric: No depression. Constitutional: No weight loss or loss of appetite. PHYSICAL EXAMINATION: General: The patient is awake and alert. Vital Signs: Afebrile, pulse 91, breathing at 16, blood pressure 158/93. HEENT: Head normocephalic and atraumatic. Eyes intact, no ulcers. Nose intact, no ulcers. Ears intact, no ulcers. Neck: Supple. No JVD. Chest: Symmetrical and clear. Cardiovascular: Shows S1 and S2, no rub, no murmur. Gastrointestinal: Abdomen is soft, bowel sounds positive. Extremities: Show no edema or ulcers. Skin: Shows no rash or petechiae. Musculoskeletal: Shows no joint swelling or stiffness. Genitourinary: Shows no Haynes or CVA tenderness. Neurologic: Motor intact. Cranial nerves intact. LABORATORY DATA: Show creatinine 0.66. Drug screen positive for benzodiazepine. ASSESSMENT AND RECOMMENDATION: Chronic kidney disease, stage 1, stable. Hypertension, most likely essential hypertension. I would recommend getting plasma metanephrines as well as a renin/lars ratio as well as a cortisol level to evaluate any secondary causes for hypertension. Currently, the patient is an alcoholic, so the patient could have symptoms related to alcohol withdrawal causing hypertension, and alcohol by itself will cause hypertensive crisis. Overall prognosis is poor. I will follow along. MEDICATIONS: I would recommend increasing the lisinopril to 30 b.i.d. as well as increasing the clonidine to 0.2 t.i.d. and titrating it from 0.2 to 0.3 three times a day or four times a day, make sure that the patient's bradycardia should be monitored. Further, we can add hydralazine 10 mg, which can be titrated up to 100 mg three times a day. All the above findings were discussed and all questions were answered. Job ID: [id number]
[2019-07-22] MEDS: cloNIDine 0.2 MG TAB PO SCH ×2 (16:21→20:17)
[2019-07-22] MEDS ORDERED: Oxazepam 10 MG CAP PO SCH ×2 (18:00→19:00)
[2019-07-22 18:16] LABS: Clarity Clear (Clear)
[2019-07-22 18:17] LABS: Bacteria/HPF None Seen HPF (None Seen); Bilirubin Negative (Negative); Blood, Urine Negative (Negative); Glucose, Urine (Dipstick) Normal (Negative); Leukocyte Negative Leu/uL (Negative); Nitrite Negative (Negative); Protein, Urine (Dipstick) Negative (Neg-Trace); RBC/HPF 0-3 HPF (0-3); Squamous Epithelial None Seen HPF (0-3); Urobilinogen Normal mg/dL (Less than 2); WBC/HPF 0-3 HPF (0-3)
[2019-07-22] MEDS: Atorvastatin Calcium 40 MG TAB PO SCH (20:17)
[2019-07-22] MEDS: Enoxaparin Sodium 30 MG/0.3 ML SYRINGE SC SCH (20:18)
[2019-07-23] MEDS ORDERED: Oxazepam 10 MG CAP PO PRN (00:01)
[2019-07-23] MEDS: Oxazepam 10 MG CAP PO SCH ×2 (01:59→10:52)
[2019-07-23 08:13] LABS: Anion Gap 13 mmol/L (10-20); BUN (Urea Nitrogen) 12 mg/dL (8.9-20.6); Calc. Creatinine Clearance 102 mL/min (70-130); Carbon Dioxide 26 mmol/L (22-29); Chloride 96 mmol/L (98-107); Estimated GFR-MDRD Greater than 90; Glucose 91 mg/dL (70-105); Potassium 4.5 mmol/L (3.5-5.1); Sodium 130 mmol/L (136-145)
[2019-07-23] MEDS: cloNIDine 0.2 MG TAB PO SCH (08:20)
[2019-07-23] MEDS: Magnesium Oxide 400 MG TAB PO SCH (08:20)
[2019-07-23] MEDS: Carvedilol 25 MG TAB PO SCH (08:20)
[2019-07-23] MEDS: Multivitamin W/ Minerals 1 TAB PO SCH (08:20)
[2019-07-23] MEDS: Famotidine 20 MG TAB PO SCH (08:20)
[2019-07-23] MEDS: Amlodipine 10 MG TAB PO SCH (08:20)
[2019-07-23] MEDS: Thiamine 100 MG TAB PO SCH (08:20)
[2019-07-23] MEDS: Aspirin Chewable 81 MG TAB PO SCH (08:21)
[2019-07-23] MEDS: Folic Acid 1 MG TAB PO SCH (08:21)
[2019-07-23] MEDS: Polyethylene Glycol 3350 17 GM Packet PO PRN (08:21)
[2019-07-23] MEDS ORDERED: Sodium Chloride 1 GM TAB PO SCH (09:00)
[2019-07-23] MEDS ORDERED: Lisinopril 20 MG TAB PO SCH ×2 (09:00)
--- NOTE | 2019-07-23 09:11 | PDOC.FM ---
- Subjective Subjective: Patient was resting comfortably in bed at the time of evaluation, and denied any acute overnight events. No acute overnight events reported by Nursing Staff. - Objective Vital Signs & Weight: Vital Signs (12 hours) Temp Pulse Resp BP BP BP Pulse Ox 07/23/19 08:20 83 07/23/19 07:00 98.1 F 83 18 148/105 H 99 07/23/19 03:40 125/84 07/23/19 03:20 97.3 F L 71 20 125/84 98 07/22/19 23:42 117/81 07/22/19 23:00 97.7 F 69 20 117/81 100 Weight Admit Weight 58.241 kg Weight 58.2 kg Most Recent Monitor Data Heart Rate from ECG 101 NIBP 163/105 NIBP BP-Mean 124 Respiration from ECG 28 SpO2 95 I&O: 07/22/19 07/23/19 07/24/19 06:59 06:59 06:59 Intake Total 2240 3045 Output Total 2725 2065 Balance -485 980 Result Diagrams: 07/21/19 04:28 07/23/19 07:31 Phys Exam - Physical Examination Constitutional: NAD HEENT: moist MMs, sclera anicteric, oral pharynx no lesions Neck: supple, full ROM Respiratory: no wheezing, no rales, no rhonchi, clear to auscultation bilateral Cardiovascular: RRR, no significant murmur, no rub Gastrointestinal: soft, non-tender Musculoskeletal: pulses present Neurological: moves all 4 limbs Improving strength in LUE and LLE Psychiatric: normal affect, A&O x 3 Dx/Plan (1) Alcohol abuse Code(s): F10.10 - ALCOHOL ABUSE, UNCOMPLICATED Status: Acute (2) CVA (cerebral vascular accident) Code(s): I63.9 - CEREBRAL INFARCTION, UNSPECIFIED Status: Acute (3) Macrocytosis Code(s): D75.89 - OTHER SPECIFIED DISEASES OF BLOOD AND BLOOD-FORMING ORGANS Status: Acute (4) Tobacco abuse Code(s): Z72.0 - TOBACCO USE Status: Acute - Plan Plan: Patient is a 49 y/o male admitted to the hospital for evaluation of acute left- sided weakness. 1. CVA -CT Brain/CTA Head/Neck: Proximal LICA 80% stenosis -MRI (Brain): Right Basal Ganglia Infarct with periventricular extension -CV Surgery: Consulted, s/p CEA by Dr. Ortiz on 07/17 -Neruology: Consulted, recs appreciated -PT: Consulted, recommended In-Patient Rehab after DC -Case Management: Consulted, assisting w/ placement as patient is uninsured -TTE: EF 60-65%, mild mitral and tricuspid regurgitation, 1/3 diastolic dysfunction -Started on Statin and ASA -Residual left-sided weakness and dysmetria - improving -Awaiting Case Management recs for [facility] 2. EtOH Abuse -Macrocytosis w/o anemia and thrombocytopenia -Thiamine and Folate supplementation -ASE Protocol -EtOH x2 w/ meals, per Dr. Ortiz - DC'd -Currently on Oxazapam 10 mg PO Q6H 3. Hyponatremia -Likely 2/2 to #3 -Improving with PO intake 4. Tobacco Abuse -Nicotine Patch -Will continue to encouraged Tobacco Abuse cessation 5. Hypertension -Difficult to control since admission -Currently on Carvedilol 50 mg PO BID, Lisinopril 20 mg PO daily and Amlodipine 10 mg PO daily - will increase to Lisinopril 30 mg PO daily -Serial BMPs to monitor Cr following addition of new ACEi -Renal US: Pending -Renin/Aldosterone: Pending PCP: None Code: Full Diet: HH w/ EtOH x2 at Meals VTE PPE: Lovenox Fluids: SL Dispo: Currently stable and admitted to Stroke Floor. Continue to monitor BP and titrate antihypertensive regimen as needed, await US results as per above. Coordinate w/ Case Management in order to assist w/ placement. Expected LOS < 24H. Addendum - Attending - Attending Attestation Date/Time: 07/23/19 1000 I personally evaluated the patient and discussed the management with Dr. Kruse I agree with the History, Examination, Assessment and Plan documented above with any addition or exceptions noted below. Patient is a 49 y/o male being treated for hypertensive urgency and CVA. POD #5 after CEA. BP much improved with clonidine. Approved for [facility]. Secondary HTN workup negative to this point. Will send benzo taper if patient intends to quit drinking. RA Samaniego
[2019-07-23 11:51] VITALS: BP 139/88; TEMP 97.7
--- NOTE | 2019-07-23 18:42 | PRG ---
DATE OF SERVICE: 07/23/2019 SUBJECTIVE: 49-year-old gentleman being seen for hypertension. Patient denies any nausea, vomiting, or chest pain. PHYSICAL EXAMINATION: GENERAL: Patient is awake and alert. VITAL SIGNS: Afebrile, pulse 70, breathing 16, blood pressure 139/88. HEENT: Head normocephalic and atraumatic. Eyes intact, no ulcers. Nose intact, no ulcers. Ears intact, no ulcers. Neck: Supple. No JVD. Chest: Symmetrical and clear. Cardiovascular: Shows S1 and S2, no rub, no murmur. Gastrointestinal: Abdomen is soft, bowel sounds positive. Extremities: Show no edema or ulcers. Skin: Shows no rash or petechiae. Musculoskeletal: Shows no joint swelling or stiffness. Genitourinary: Shows no Haynes or CVA tenderness. Neurologic: Motor intact. Cranial nerves intact. LABORATORY DATA: Hemoglobin 10.9, creatinine 0.7. ASSESSMENT AND PLAN: 1. Stage 1 chronic kidney disease, stable. 2. Hypertension, stable. 3. Anemia, stable. Medication based on GFR appropriate. The patient can follow up as an outpatient. Job ID: [id number]
--- NOTE | 2019-07-24 06:04 | DIS ---
DATE OF ADMISSION: 07/16/2019 DATE OF DISCHARGE: 07/23/2019 CONSULTS: Dr. Aimee Rodriguez, Neurology; Dr. Pj Ortiz, Cardiovascular Surgery; Dr. Hussein Carrillo, Nephrology. PROCEDURES: Abdominal ultrasound revealing unremarkable liver parenchyma. Gallbladder contracted with thickened wall, possible right renal calculi. Echocardiogram revealing an ejection fraction of 60% to 65%. Grade 1 to 3 diastolic dysfunction. Brain MRI which revealed a right basal ganglia infarct. Renal ultrasound, which revealed no evidence of hemodynamically significant renal artery stenosis. PRIMARY DIAGNOSIS: Cerebrovascular accident. SECONDARY DIAGNOSES: Coronary artery disease, atherosclerosis, hypertension, alcohol abuse, hyponatremia resolved, tobacco abuse. DISCHARGE MEDICATIONS: 1. Nicoderm CQ patches 21 mg TD one daily. 2. Amlodipine 10 mg p.o. daily. 3. Aspirin 81 mg p.o. daily. 4. Atorvastatin 40 mg p.o. daily. 5. Carvedilol 25 mg p.o. b.i.d. 6. Clonidine 0.2 mg p.o. t.i.d. 7. Lisinopril 40 mg p.o. daily. DISCONTINUED MEDICATIONS: [place] 5/325 one tab p.o. q.4 hours p.r.n., Lovenox 30 mg subcutaneous daily, famotidine 20 mg p.o. b.i.d., fentanyl 25 mcg slow IVP, folic acid 1 mg p.o. daily, hydralazine 10 mg slow IVP q.4 hours p.r.n., multivitamin one tab p.o. daily, labetalol 20 mg slow IVP, magnesium oxide 400 mg p.o. daily, oxazepam 30 mg p.o. x1, oxazepam 10 mg p.o. q.6 hours, thiamine 100 mg p.o. daily. HOSPITAL COURSE: The patient is a 49-year-old male with past medical history significant for hypertension, tobacco abuse and alcohol abuse, who presents to the emergency department with a chief complaint of left-sided weakness. The patient stated the weakness started the day before presentation at about 8 o'clock at night when he woke up from a nap. The patient states that he stood up to go to the restroom and fell. He states he was too weak on his left side and had trouble getting up. He thought maybe this would pass, so went to bed that evening. Earlier today he was seen in outside [facility] Emergency Department and was worked up for a stroke with a negative CT brain, CTA head and neck. He decided to leave AMA so he can have a beer and a cigarette. He states that the symptoms did not improve, so we called an ambulance and came back to the ER. He states that his weakness was mildly improved but still present. His arm and hand felt fatigued. Additional workup included imaging studies mentioned elsewhere in this document. The patient was subsequently transferred to the stroke floor. 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 As such additional workup was done to identify secondary causes of hypertension with that workup being essentially negative. Nephrology was consulted, who recommended discontinuation of the patient's alcohol which had previously been taken with each meal per the recommendations of Cardiovascular Surgery. This in the addition of a fourth antihypertensive agent greatly assisted with controlling the patient's blood pressure and as such, he was subsequently prepped for discharge. Prior to discharge, the patient's vital signs reported as temperature 97.7, pulse 70, blood pressure 139/88, respirations 20 per minute, oxygen saturation 100% on room air. LABORATORY ANALYSIS: Revealed white blood cell count of 4.7, hemoglobin of 12.9, hematocrit 38.5, platelet count of 118. Chem panel revealed a sodium of 130, potassium 4.5, chloride 96, carbon dioxide 26, BUN 12, creatinine 0.71, glucose is 91, calcium 9, phosphorus 4, magnesium 1.9, AST 45, ALT 38, troponin 0.013, triglycerides 64, cholesterol 130, LDL 71, HDL 46. TSH is 2.0346. Cortisol 10.2. An outside lab value indicates flow cytometry analysis and no immunophenotypic evidence of lymphoproliferative disorder. DISPOSITION: Stable. DISCHARGE INSTRUCTIONS: Location: Home. Diet: Heart healthy. Activity: No restrictions. FOLLOWUP: The patient will be discharged to his mother's home at [place], [place] where he will receive home health services in order to assist with physical reconditioning and occupational therapy. Of note, the patient was strongly encouraged to cease his alcohol abuse as this is probably a great contributing factor to the patient's stroke and [id number] hypertension. The patient was encouraged to seek assistance with a 12 step program if needed. Additionally, the patient was encouraged to establish care with primary care provider in approximately 3 to 4 weeks in order to discuss ongoing medication management, ongoing abstinence from alcohol and tobacco abuse and to manage other chronic medical problems. Job ID: [id number]
--- NOTE | 2019-07-24 11:43 | OP ---
DATE OF PROCEDURE: 07/18/2019 PREOPERATIVE DIAGNOSIS: Asymptomatic left carotid stenosis. POSTOPERATIVE DIAGNOSIS: Asymptomatic left carotid stenosis. PROCEDURE PERFORMED: Left carotid endarterectomy with patch angioplasty. ANESTHESIA: General endotracheal. ESTIMATED BLOOD LOSS: Less than 100. DESCRIPTION OF PROCEDURE: After consent was obtained, the patient was brought to the operating room and placed in supine position on the operating room table. Appropriate central line and monitors were placed, and general endotracheal anesthesia was induced. Left neck was prepped and draped in usual sterile fashion. Skin incision was made. Dissection down through the platysma was obtained with electrocautery. Sternocleidomastoid was mobilized. Carotid sheath was entered. Vagus and hypoglossal nerves were noted and protected throughout the procedure. Internal, common, and external carotid arteries were carefully exposed. The patient was systemically heparinized. After 3 minutes, internal, common, and external carotid arteries were serially clamped. Incision was made on the common carotid artery extended through the bulb on the internal carotid artery distal to the plaque. A 10-[place] shunt was placed and antegrade flow re-established. Endarterectomy was performed with mosquito hemostats. Good tapered distal endpoint was obtained. The medial fibers were debrided. Artery was flushed with heparinized saline. Bovine pericardial patch was sewn in place with running 6-0 Prolene suture. Prior to completion of patch suture line, shunt was removed and artery was back bled. Arteries were then flushed with heparinized saline. Patch suture line was completed and tied. Antegrade flow was re-established at the external carotid artery for 10 seconds followed by the internal carotid artery. Protamine was administered. Hemostasis was ensured. Wounds were copiously irrigated, closed in layers and Dermabond applied to skin. The patient was awakened and neurologically unchanged from his preoperative state after procedure. Job ID: [id number]
[2019-07-29 13:36] LABS: Renin Activity 0.368 ng/mL/hr (0.167-5.380)
[2019-07-29 23:08] LABS: Metanephrine,Plasma 26 pg/mL (0-62); Normetanephrine,Pl 59 pg/mL (0-145)
== END 2019-07-23 14:26 | disposition home health service (06) | DRG 38 ==
LOC: ERS 18:42 → 2SE 22:58 → OBSVTOIN 22:58 → CCU 07-18 14:16 → 2SE 07-19 12:47
PROVIDERS: ADMIT Emergency Medicine; ATTEND Emergency Medicine
PROC: 03CL0ZZ Extirpation of Matter from Left Internal Carotid Artery, Open Approach (ICD-10-PCS; principal; 2019-07-18)
PROC: 03UL0KZ Supplement Left Internal Carotid Artery with Nonautologous Tissue Substitute, Open Approach (ICD-10-PCS; 2019-07-18)
DX: I63.9 Cerebral infarction, unspecified (principal); E87.1 Hypo-osmolality and hyponatremia; G81.94 Hemiplegia, unspecified affecting left nondominant side; I25.10 Atherosclerotic heart disease of native coronary artery without angina pectoris; I10 Essential (primary) hypertension; F17.210 Nicotine dependence, cigarettes, uncomplicated; W18.39XA Other fall on same level, initial encounter; F10.20 Alcohol dependence, uncomplicated; R40.2142 Coma scale, eyes open, spontaneous, at arrival to emergency department; D69.6 Thrombocytopenia, unspecified; R40.2362 Coma scale, best motor response, obeys commands, at arrival to emergency department; R40.2252 Coma scale, best verbal response, oriented, at arrival to emergency department; I65.22 Occlusion and stenosis of left carotid artery; E78.5 Hyperlipidemia, unspecified
CPT/HCPCS: 36415; 70450; 70551; 76705; 76770; 80048; 80053; 80061; 80306; 80307; 81001; 82088; 82533; 83735; 83835; 84100; 84244; 84443; 85025; 88184; 88185; 88307; 93005; 93306; 93975; 94640; J0171; J0360; J0690; J1100; J1642; J1644; J1650; J2001; J2370; J2405; J2704; J2720; J3010; J3411; J3475; J3490; J7620; S0020